=== PATIENT | female | born 2000 ===

== ENCOUNTER 2021-11-19 12:27 | Emergency (ER) | payer BC, OTHER ==
[~2021-11-19] VITALS: Ht 160 cm; Wt 112.5 kg
[2021-11-19 13:21] LABS: Urine Bacteria FEW /hpf (None Seen); Urine Blood Negative /uL (Negative); Urine Specific Gravity 1.012 (1.001-1.035); Urine WBC 1 /hpf (0 - 5)
[2021-11-19 14:02] LABS: Basophils # (auto) 0 10 ^3/uL (0-0.2); Basophils % (auto) 0.3 % (0.0-2.0); Eosinophils # (auto) 0 10 ^3/uL (0-0.8); Eosinophils % (auto) 0.3 % (0.0-7.0); Hematocrit 38.5 % (36.0-46.0); Lymphocytes # (auto) 1.8 10 ^3/uL (0.4-5.4); Lymphocytes % (auto) 24.1 % (10.0-50.0); Mean Corpuscular Hemoglobin 30.8 pg (28.0-32.0); Mean Corpuscular Hgb Conc. 33.6 g/dL (32.0-36.0); Mean Corpuscular Volume 91.7 fL (80.0-100.0); Monocytes # (auto) 0.5 10 ^3/uL (0-1.3); Monocytes % (auto) 6.7 % (0.0-12.0); Neutrophils % (auto) 68.6 % (37.0-80.0); Red Cell Distribution Width 13.8 % (11.8-14.3); White Blood Cell 7.3 10^3/uL (4.4-10.8)
[2021-11-19 14:13] LABS: Albumin 3.2 g/dL (3.4-5.0); Calcium 8.9 mg/dL (8.5-10.1); INR 0.98 (0.9-1.15); Partial Thromboplastin Time 26.7 sec (23.6-33.0); Potassium 4.7 mmol/L (3.5-5.1)
[2021-11-19 14:15] LABS: BUN/Creatinine Ratio 11.9
[2021-11-19 14:18] LABS: Bilirubin, Total 0.3 mg/dL (0.2-1.0); Total Protein 7.1 g/dL (6.4-8.2)
[2021-11-19] MEDS ORDERED: CEFP200T15 PO (16:06)
[2021-11-19 16:20] VITALS: BP 123/71
== END 2021-11-19 18:06 | disposition home or self-care (01) ==
LOC: ER 12:34
DX: O46.8X1 Other antepartum hemorrhage, first trimester (principal); O26.891 Other specified pregnancy related conditions, first trimester; R82.71 Bacteriuria; Z3A.12 12 weeks gestation of pregnancy
CPT/HCPCS: 36415; 76801; 80053; 81001; 81025; 82010; 84702; 85025; 85610; 85730; 86850; 86900; 86901